=== PATIENT | male | born 1965 | race Asian ===

== ENCOUNTER 2023-11-27 15:00 | Emergency (ER) | payer OTHER ==
[~2023-11-27] VITALS: Ht 175.3 cm; Wt 93.0 kg
[2023-11-27 15:24] VITALS: BP_SYST 133; PULSE 79; RESP 16; TEMP 97.7
[2023-11-27] MEDS: IBUPROFEN 800 MG TABLET PO ONE (16:15)
[2023-11-27] MEDS: HYDROcodone/ACETAMIN 10-325 MG TAB PO ONE (16:15)
[2023-11-27] MEDS ORDERED: TRAM50TA2 PO (17:40)
[2023-11-27] MEDS ORDERED: IBUP-1969 PO (17:40)
[2023-11-27 18:07] VITALS: BP_SYST 130; PULSE 75; RESP 16; TEMP 97.6; O2SAT 100
== END 2023-11-27 18:11 | disposition home or self-care (01) ==
LOC: SED 15:00
DX: S09.8XXA Other specified injuries of head, initial encounter (principal); R42 Dizziness and giddiness; M54.2 Cervicalgia; R07.89 Other chest pain; W51.XXXA Accidental striking against or bumped into by another person, initial encounter; Y93.89 Activity, other specified; Y92.89 Other specified places as the place of occurrence of the external cause; Y99.8 Other external cause status
CPT/HCPCS: 70450-TC; 71045; 93005; 99284